=== PATIENT | female | born 1955 | race African-American/Black ===

== ENCOUNTER 2016-09-28 06:40 | Outpatient (CLI) | payer MEDICARE ==
[~2016-09-28] VITALS: Ht 160 cm; Wt 74.4 kg
[2016-09-28] VITALS (18 sets, daily range): BP systolic 90–142; BP diastolic 61–106; PULSE 57–80; TEMP 98.4–98.7
[2016-09-28] MEDS ORDERED: ALDACTONE 25MG25 M1 PO (07:46)
[2016-09-28] MEDS ORDERED: PRINIVIL10 MG PO (07:46)
[2016-09-28] MEDS ORDERED: COREG 25MG25 MG/TAB PO (07:47)
[2016-09-28] MEDS ORDERED: GLUCOPHAGE500 MG/TAB PO (07:48)
[2016-09-28] MEDS ORDERED: LIPITOR 80MG80 MG PO (07:48)
[2016-09-28] MEDS ORDERED: HCTZ12.5TAB PO (07:49)
[2016-09-28] MEDS ORDERED: VITAMIN D1000 IU PO (07:50)
[2016-09-28] MEDS ORDERED: ASPIRIN 81M81 MG/TA2 PO (07:50)
[2016-09-28] MEDS ORDERED: TRAVATAN Z 2.52.5 ML OS (07:51)
[2016-09-28] MEDS ORDERED: ZETIA 10MG TAB10 MG PO (07:51)
[2016-09-28] MEDS ORDERED: ISTALOL 2.5 ML2.5 ML OD (07:51)
[2016-09-28 08:10] LABS: HEMATOCRIT 43.7 % (37.0-47.0); HEMOGLOBIN 14.3 g/dl (12.5-16.0); MEAN CELL VOLUME 94 fl (80.0-100.0); MEAN CORPUSCULAR HEMOGLOBIN 31 pg (27.0-31.0); MEAN CORPUSCULAR HGB CONC 33 g/dl (33.0-37.0); MEAN PLATELET VOLUME 11.1 fl (7.4-10.4); PLATELET COUNT 243 K/mm3 (130-400); RED BLOOD COUNT 4.63 M/mm3 (4.10-5.30); REDCELL DISTRIBUTION WIDTH-CV 13.4 % (11.5-14.5); WHITE BLOOD COUNT 7.7 K/mm3 (4.8-10.8)
[2016-09-28 08:15] LABS: PROTHROMBIN TIME 10.8 SECONDS (9.7-12.8)
[2016-09-28 08:20] LABS: CALCIUM 11.1 mg/dL (8.4-10.2); CREATININE, serum 0.72 mg/dL (0.52-1.25); POTASSIUM 4.2 mmol/L (3.4-5.0)
== END 2016-09-28 11:00 | disposition home or self-care (01) ==
LOC: COL.RAD 06:40
PROVIDERS: Internal Medicine Cardiovascular Disease
DX: I34.0 Nonrheumatic mitral (valve) insufficiency (principal); I70.0 Atherosclerosis of aorta; Z95.0 Presence of cardiac pacemaker
CPT/HCPCS: J2175; J2250

== ENCOUNTER 2016-10-17 07:50 | Outpatient (CLI) | payer MEDICARE, MEDICAID ==
[~2016-10-17 07:50] MED LIST: ALDACTONE 25MG25 M1 PO; ASPIRIN 81M81 MG/TA2 PO; COREG 25MG25 MG/TAB PO; GLUCOPHAGE500 MG/TAB PO; HCTZ12.5TAB PO; ISTALOL 2.5 ML2.5 ML OD; LIPITOR 80MG80 MG PO; PRINIVIL10 MG PO; TRAVATAN Z 2.52.5 ML OS; VITAMIN D1000 IU PO; ZETIA 10MG TAB10 MG PO
[2016-10-17] MEDS ORDERED: PLAVIX 75MG TAB75 MG PO (08:16)
[2016-10-17] MEDS ORDERED: BINOSTO PO (08:31)
[2016-10-17 08:32] VITALS: BP 107/71; PULSE 64; TEMP 98.2
[2016-10-17] MEDS ORDERED: CLEOCIN HCL300 MG PO (09:38)
== END 2016-10-17 09:51 | disposition home or self-care (01) ==
LOC: EUO 07:50 → COL.CAR 08:00 → EUO 09:51
DX: I48.0 Paroxysmal atrial fibrillation (principal); I08.1 Rheumatic disorders of both mitral and tricuspid valves; I70.0 Atherosclerosis of aorta; Z95.0 Presence of cardiac pacemaker; Z95.810 Presence of automatic (implantable) cardiac defibrillator
CPT/HCPCS: C1764

== ENCOUNTER 2018-10-03 12:15 | Inpatient (IN) | payer MEDICARE, MEDICAID ==
[~2018-10-03] VITALS: Ht 160 cm; Wt 84.0 kg
[~2018-10-03 12:15] MED LIST changes: +BINOSTO PO; +CLEOCIN HCL300 MG PO; +INFANTS AQU400 IU/ML PO; -ISTALOL 2.5 ML2.5 ML OD; +ISTALOL 2.5 ML2.5 ML OU; +PLAVIX 75MG TAB75 MG PO; -VITAMIN D1000 IU PO
[2018-10-07 08:37] VITALS: BP 119/76; PULSE 67; TEMP 98.1
[2018-10-07] MEDS ORDERED: AZOPT 10 ML10 ML OU (09:25)
[2018-10-07 11:07] LABS: HEMATOCRIT 42.5 % (37.0-47.0); HEMOGLOBIN 13.8 g/dl (12.5-16.0); MEAN CELL VOLUME 95 fl (80.0-100.0); MEAN CORPUSCULAR HEMOGLOBIN 31 pg (27.0-31.0); MEAN CORPUSCULAR HGB CONC 33 g/dl (33.0-37.0); PLATELET COUNT 212 K/mm3 (130-400); RED BLOOD COUNT 4.46 M/mm3 (4.10-5.30); REDCELL DISTRIBUTION WIDTH-CV 13.2 % (11.5-14.5)
[2018-10-07 11:17] LABS: ALBUMIN 3.8 gm/dL (3.5-5.0); BILIRUBIN,TOTAL 0.5 mg/dL (0.0-1.0); CALCIUM 11.4 mg/dL (8.4-10.2); CREATININE, serum 0.79 (0.52-1.25); POTASSIUM 4.7 mmol/L (3.4-5.0); TOTAL PROTEIN 7.3 gm/dL (6.4-8.2)
--- NOTE | 2018-10-07 11:49 | NUR ---
Pt arrived to floor at approximately 0900, was very afraid of IV start and states she is typically requires 4 or 5 tries to get one. Called [facility] and they started a 24G to the . Flushes very hard but tolerable. Pt doing well. Tele in place, eating well, EGK completed. Gave first dose of sotalol per orders. Oriented to room and shown nourishment room per reqeust. Will continue to monitor.
[2018-10-07 12:21] VITALS: BP 123/71; PULSE 61; TEMP 97.7
[2018-10-07 15:55] VITALS: BP 107/64; PULSE 56; TEMP 98.5
--- NOTE | 2018-10-07 17:27 | NUR ---
Patient sitting up in bed. A&O, denies pain and discomfort. VSS. IV CDI. Patient has had an uneventful day. No further needs expressed from patient. Call light within reach
[2018-10-07 18:50] VITALS: BP 107/64; PULSE 59; TEMP 98.3
--- NOTE | 2018-10-07 20:30 | NUR ---
Initial shift assessment done- denies pain, states feels fine, Tele on, VSS, up walking the halls- pt put on nicotine patch 21mg that she had in her purse-- will call to see if this is OK- pt states she will get very anxious without a patch
[2018-10-07 23:09] VITALS: BP 93/57; PULSE 58; TEMP 97.9
[2018-10-08 03:56] VITALS: BP 100/56; PULSE 57; TEMP 98
--- NOTE | 2018-10-08 05:00 | NUR ---
Quiet night- VSS, tele on, SCD,s on at this time- INT to [facility]
[2018-10-08 07:26] VITALS: BP 101/58; PULSE 58; TEMP 97.8
[2018-10-08 08:23] LABS: CALCIUM 11.2 mg/dL (8.4-10.2); CREATININE, serum 0.81 (0.52-1.25); POTASSIUM 4.5 mmol/L (3.4-5.0)
[2018-10-08 08:26] LABS: BASO # 0.1 (0.0-0.2); BASO % 0.7 % (0.0-2.0); EOS # 0.3 (0.0-0.7); GRAN # 3.2 (1.4-6.5); GRAN % 42.6 % (42.2-75.2); HEMATOCRIT 43.5 % (37.0-47.0); HEMOGLOBIN 13.9 g/dl (12.5-16.0); LYMPH # 3.2 (1.2-3.4); LYMPH % 42.1 % (20.0-51.0); MEAN CELL VOLUME 96 fl (80.0-100.0); MEAN CORPUSCULAR HEMOGLOBIN 31 pg (27.0-31.0); MEAN CORPUSCULAR HGB CONC 32 g/dl (33.0-37.0); MEAN PLATELET VOLUME 11.2 fl (7.4-10.4); MONO # 0.8 (0.1-0.6); MONO % 10.3 % (1.7-9.3); PLATELET COUNT 213 K/mm3 (130-400); RED BLOOD COUNT 4.54 M/mm3 (4.10-5.30); REDCELL DISTRIBUTION WIDTH-CV 13.2 % (11.5-14.5)
--- NOTE | 2018-10-08 08:45 | NUR ---
Patient assessment complete and charted. Denies chest pain, dizziness, sob, N/V and pain. Pt on room air, ambulating in room independently. RFA INT IV patent and flushing well. No other complaints at this time. Pt eating breakfast, call light within reach.
--- NOTE | 2018-10-08 10:25 | NUR ---
Initial visit; Patient thanked Behavioral Health Therapist for looking in on her and offering Spiritual Care.
[2018-10-08 11:28] VITALS: BP 119/86; PULSE 61; TEMP 97.3
--- NOTE | 2018-10-08 15:26 | NUR ---
SW met with patient to discuss discharge planning. Patient lives independently at home. Patient's PCP is Dr Rashel Christian and she obtains prescriptions [facility] in [place]. Patient has a cane, walker and CPAP and no home health services. Patient does not have a DPOA-HC but is working with her daughter to get advanced directives completed. SW does not anticipate any discharge needs.
--- NOTE | 2018-10-08 16:20 | NUR ---
Pt has had uneventful day, up to EOB most of day reading, showered this morning. No complaints. Cooperative with cares.
[2018-10-08 16:49] VITALS: BP 129/87; PULSE 54; TEMP 97.8
--- NOTE | 2018-10-08 19:03 | NUR ---
Report given to RAFAEL Bear to resume cares. No needs at this time.
[2018-10-08 19:14] VITALS: BP 122/66; PULSE 53; TEMP 98.7
--- NOTE | 2018-10-08 19:58 | NUR ---
Shift assessment complete. Patient in bed, resting. Denies pain. HR 53. NSR on tele. SCD's placed per pt request. Denies further needs at this time. Will continue to monitor.
[2018-10-08 23:31] VITALS: BP 102/61; PULSE 55; TEMP 97.5
[2018-10-09 03:27] VITALS: BP 103/58; PULSE 57; TEMP 97.7
--- NOTE | 2018-10-09 04:27 | NUR ---
Patient in bed, sleeping. Appears comfortable. Will continue to monitor.
[2018-10-09 07:19] LABS: BASO % 0.6 % (0.0-2.0); EOS # 0.3 (0.0-0.7); EOS % 4.1 % (0-4.0); GRAN % 44.4 % (42.2-75.2); HEMATOCRIT 42.1 % (37.0-47.0); HEMOGLOBIN 13.7 g/dl (12.5-16.0); LYMPH # 2.8 (1.2-3.4); LYMPH % 41.5 % (20.0-51.0); MEAN CELL VOLUME 96 fl (80.0-100.0); MEAN CORPUSCULAR HEMOGLOBIN 31 pg (27.0-31.0); MEAN CORPUSCULAR HGB CONC 33 g/dl (33.0-37.0); MEAN PLATELET VOLUME 10.8 fl (7.4-10.4); MONO # 0.6 (0.1-0.6); MONO % 9.1 % (1.7-9.3); PLATELET COUNT 222 K/mm3 (130-400); REDCELL DISTRIBUTION WIDTH-CV 13.1 % (11.5-14.5)
[2018-10-09 07:30] LABS: CALCIUM 11.3 mg/dL (8.4-10.2); CREATININE, serum 0.77 (0.52-1.25); MAGNESIUM 1.8 mg/dL (1.6-2.3); POTASSIUM 4.2 mmol/L (3.4-5.0)
[2018-10-09 07:31] VITALS: BP 113/67; PULSE 58; TEMP 97.9
--- NOTE | 2018-10-09 09:32 | NUR ---
Pt assessment complete. Pt is sitting up on the side of the bed eating breakfast, she is A/O x3. Her breathing is even and unlabored on RA. Pt denies SOB. No pain, chest pain or palpitations. Pt denies N/V. No needs at this time. Call light within reach.
[2018-10-09] MEDS ORDERED: BETAPACE 80MG80 MG PO (11:51)
[2018-10-09] MEDS ORDERED: CARDIZEM CD 12120 MG PO (11:52)
--- NOTE | 2018-10-09 12:28 | NUR ---
Discharge paperwork and instructions reviewed with patient. All questions answered at this time. IV to RFA dc'd, cathteter tip intact. Pt awaiting a ride.
--- NOTE | 2018-10-09 13:22 | NUR ---
Pt walked out of facility at this time.
== END 2018-10-09 13:22 | disposition home or self-care (01) | DRG 281 ==
LOC: MEDICAL 10-07 08:22
PROVIDERS: ADMIT Internal Medicine Cardiovascular Disease
DX: I47.2 Ventricular tachycardia (principal); I21.9 Acute myocardial infarction, unspecified; I42.9 Cardiomyopathy, unspecified; I10 Essential (primary) hypertension; E78.5 Hyperlipidemia, unspecified; I08.1 Rheumatic disorders of both mitral and tricuspid valves; I25.10 Atherosclerotic heart disease of native coronary artery without angina pectoris; Z86.73 Personal history of transient ischemic attack (TIA), and cerebral infarction without residual deficits; Z95.818 Presence of other cardiac implants and grafts; Z95.5 Presence of coronary angioplasty implant and graft